=== PATIENT | male | born 1950 | race Caucasian/White ===

== ENCOUNTER → 2017-05-10 | Outpatient (CLI) | payer MEDICARE, OTHER ==
[~2017-05-10] MED LIST: ALPR0.5T6 PO; FINA5TAB4 PO; SERT100T5 PO
[2017-05-10 17:06] LABS: ASPARTATE AMINO TRANSFERASE 18 U/L (15-37); BLOOD UREA NITROGEN 19 mg/dL (7-18)
== END | disposition home or self-care (01) ==
LOC: STAR 15:51
PROVIDERS: ATTEND Student in an Organized Health Care Education/Training Program
DX: Z01.818 Encounter for other preprocedural examination (principal); R94.31 Abnormal electrocardiogram [ECG] [EKG]; R31.0 Gross hematuria; N32.89 Other specified disorders of bladder
CPT/HCPCS: 36415; 80053; 81003; 87086; 93005

== ENCOUNTER 2017-05-20 11:05 | Day surgery (SDC) | payer MEDICARE, OTHER ==
[~2017-05-20] VITALS: Ht 175.3 cm; Wt 87.0 kg
[2017-05-20] MEDS ORDERED: LACTATED RINGERS 1,000 ML IV SCH (11:30)
[2017-05-20] MEDS ORDERED: FENTANYL PF 100 MCG/2ML ONE (12:35)
[2017-05-20] MEDS ORDERED: MIDAZOLAM 1 MG/ML, 2ML ONE (12:36)
[2017-05-20] MEDS ORDERED: SUCCINYLCHOLINE 20 MG/ML, 10ML ONE (13:35)
[2017-05-20] MEDS ORDERED: PROPOFOL 10 MG/ML, 20ML ONE (13:35)
[2017-05-20] MEDS ORDERED: CEFAZOLIN 1,000 MG ONE (13:35)
[2017-05-20] MEDS ORDERED: DEXAMETHASONE 4 MG/ML, 1ML ONE (13:35)
[2017-05-20] MEDS ORDERED: GLYCOPYRROLATE 0.2MG/1ML, 5ML ONE (13:35)
[2017-05-20] MEDS ORDERED: NEOSTIGMINE 1 MG/ML, 10ML ONE (13:35)
[2017-05-20] MEDS ORDERED: ROCURONIUM 10 MG/ML,10ML ONE (13:35)
[2017-05-20] MEDS ORDERED: ONDANSETRON 2MG/ML, 2ML ONE (13:35)
[2017-05-20] MEDS ORDERED: FENTANYL PF 100 MCG/2ML IV PRN (15:00)
[2017-05-20] MEDS ORDERED: OXYcodone 5 MG/5 ML ORAL.SOL UDC PO PRN (15:00)
[2017-05-20] MEDS ORDERED: ACETAMINOPHEN 325 MG TABLET PO PRN (15:00)
[2017-05-20] MEDS ORDERED: ONDANSETRON 2MG/ML, 2ML IVPush PRN (15:00)
[2017-05-20] MEDS ORDERED: LABETALOL 5MG/ML, 20ML IV PRN (15:00)
[2017-05-20] MEDS ORDERED: hydrALAzine 20 MG/ML, 1ML IV PRN (15:00)
[2017-05-20] MEDS ORDERED: METOCLOPRAMIDE 5 MG/ML, 2ML IV PRN (15:00)
[2017-05-20] MEDS ORDERED: HYDROmorphone 1 MG/ML, 1ML IV PRN (15:00)
[2017-05-20] MEDS ORDERED: PHENAZOPYRIDINE 100 MG TABLET PO ONE (16:30)
== END 2017-05-20 17:15 | disposition home or self-care (01) ==
LOC: OR 11:05
PROVIDERS: ATTEND Student in an Organized Health Care Education/Training Program
DX: N40.1 Benign prostatic hyperplasia with lower urinary tract symptoms (principal); N13.8 Other obstructive and reflux uropathy; N32.89 Other specified disorders of bladder
CPT/HCPCS: 52224; 88305; J0330; J0690; J1100; J2250; J2405; J2704; J2710; J3010; J7120; J3490